=== PATIENT | male | born 1990 | race Caucasian/White ===

== ENCOUNTER 2021-11-05 20:45 | Emergency (ER) | payer SELFPAY ==
[~2021-11-05 20:45] MED LIST: IBUPROFEN800 MG PO; VENTOLIN HFA IN18 GM INH
[2021-11-05 21:47] LABS: BASOPHIL 0.4 % (0-2); EOSINOPHIL 2.6 % (0-5); HCT 43.5 % (42.0-52.0); HGB 15.1 g/dl (13.2-18.0); LYMPHOCYTE 18.8 % (15-48); MCH 30.3 pg (25.0-31.0); MCHC 34.7 g/dL (32.0-36.0); MCV 87.2 fL (78.0-100.0); MONOCYTE 9.1 % (0-12); MPV 10.8 fL (6.0-9.5); NEUTROPHIL 68.8 % (41-80); NRBC 0; PLT 179 K/uL (150-400); RBC 4.99 M/uL (4.70-6.00); RDW 12.7 % (11.5-14.0); WBC 9.2 K/uL (4.0-10.5)
[2021-11-05 22:06] LABS: ALBUMIN 4.1 g/dL (3.4-5.0); BILIRUBIN - TOTAL 0.6 mg/dL (0.2-1.0); BUN/CREAT RATIO (CALC) 15.7 RATIO; CREATININE 1.02 mg/dL (0.67-1.17); GLOBULIN (CALCULATION) 3.5 g/dL; POTASSIUM 3.6 mmol/L (3.5-5.1); TOTAL PROTEIN 7.6 g/dL (6.4-8.2)
[2021-11-05 22:10] LABS: BILIRUBIN NEGATIVE (NEGATIVE); BLOOD TRACE-INTACT Ery/uL (NEGATIVE); CLARITY CLEAR (CLEAR); COLOR YELLOW (YELLOW); GLUCOSE (U) NORMAL (NORMAL); LEUKOCYTES NEGATIVE Leu/uL (NEGATIVE); NITRITE NEGATIVE (NEGATIVE); PROTEIN NEGATIVE (NEGATIVE); SPECIFIC GRAVITY 1.025 (1.001-1.030)
[2021-11-05 22:15] LABS: URINARY WBC RARE
[2021-11-05 22:16] LABS: BACTERIA TRACE
[2021-11-05] MEDS ORDERED: CIPRO500 MG PO (23:23)
[2021-11-05] MEDS ORDERED: NORCO 5-325 TA1 EACH PO (23:23)
[2021-11-05] MEDS ORDERED: METRONIDAZOLE500 MG PO (23:23)
== END 2021-11-05 23:53 | disposition home or self-care (01) ==
LOC: FER 20:45
PROVIDERS: Nurse Practitioner Family
DX: K52.9 Noninfective gastroenteritis and colitis, unspecified (principal)
CPT/HCPCS: 36415; 80053; 81001; 85025; J1885; J2405; J7030; Q9967